=== PATIENT | female | born 2005 | race Hispanic/Latino ===

== ENCOUNTER 2024-08-19 22:30 | Emergency (ER) | payer MEDICAID ==
[~2024-08-19] VITALS: Ht 160 cm; Wt 86.2 kg
[2024-08-19] MEDS: FAMOTIDINE 20MG TAB PO ONE (23:46)
[2024-08-19] MEDS: ondanSETRON 4MG TABLET PO ONE (23:46)
[2024-08-19] MEDS: ketOROlac 30MG VIAL (30MG/ML) IM ONE (23:46)
[2024-08-19 23:51] LABS: BASOPHILS # (AUTO) 0.04 K/uL (0.00-0.20); BASOPHILS % (AUTO) 0.4 % (0.0-5.0); EOSINOPHILS # (AUTO) 0.05 K/uL (0.00-0.70); EOSINOPHILS % (AUTO) 0.5 % (0.0-8.0); HEMATOCRIT 34.8 % (36-48); IMMATURE GRANULOCYTE ABSOLUTE 0.02 K/uL (0-1); LYMPHOCYTES # (AUTO) 1.9 K/uL (1.0-4.8); LYMPHOCYTES % (AUTO) 18.2 % (21.0-51.0); MEAN CORPUSCULAR HEMOGLOBIN 25.8 pg (27.0-33.0); MEAN CORPUSCULAR HGB CONC 31.6 g/dL (32.0-36.0); MEAN CORPUSCULAR VOLUME 81.5 fL (80-100); MONOCYTES # (AUTO) 0.6 K/uL (0.1-1.0); MONOCYTES % (AUTO) 5.5 % (3.0-13.0); NEUTROPHILS # (AUTO) 7.9 K/uL (1.8-7.7); NEUTROPHILS % (AUTO) 75.2 % (40.0-77.0); PLATELET COUNT (AUTO) 319 K/uL (130-400); RED BLOOD CELL COUNT(AUTO) 4.27 MIL/uL (4.00-5.50); RED CELL DISTRIBUTION WIDTH 15.3 % (11.0-15.5); WHITE BLOOD COUNT (AUTO) 10.5 K/uL (4.8-10.8)
[2024-08-19] MEDS ORDERED: DOCU-116 PO (23:55)
--- NOTE | 2024-08-19 23:55 | ERN ---
ED Note History of Present Illness Stated Complaint: EPIGASTRIC PAIN RADIATES TO RUQ Chief Complaint: Abdominal Pain Time Seen by MD: 22:41 Dictation: This is the 19-year-old female who is 2 months comes in with an acute abdominal pain that started somewhere in the right upper quadrant area which eventually led to severe epigastric pain. She has been having these pains for the past few weeks and has severe burning sensation in the epigastric area. Today the pain was intense enough to vomit today no hematemesis or melena. No fever chills or rigors. She was at the movies when she started developing epigastric pain. She ate a meal around 2:00 p.m. and also some soup around 6:00 p.m.. She stated that her pain started before she ate her soup. She also reports severe chronic constipation. Temperature 97.9� pulse 78 respirations 16 blood pressure 102/68 pulse oximetry 99% on room air Allergies: Coded Allergies: codeine (Unverified Allergy, Intermediate, HIVES, 10/10/13) Home Meds Active Scripts Docusate Sodium (Colace) 100 Mg Capsule, 100 MG PO DAILYDINNER for constipation, #30 CAP 0 Refills Prov:KATIE STARR MD 08/19/24 Past Medical History Past Medical History: No Pertinent History Surgical History: Other Surgical History Other: BROKEN NOSE Family History: Negative Social History: Negative : 1 Para: 1 Aborts: 0 RN Note Reviewed/Agreed w/PFSH: Yes Review of System Dictation Constitutional: Negative for fever,chills, and weight loss Eyes: Negative for injury, pain,redness, and discharge ENT: Negative for injury,pain or swelling Cardiovascular: Negative for chest pain, palpitations, and edema Respiratory: Negative for shortness of breath, cough, and wheezing, Abdomen/GI: Positive for abdominal pain, nausea, vomiting,and constipation Back: Negative for injury and pain : Negative for injury, bleeding and discharge MS/Extremity: Negative for injury and deformity Skin: Negative for rash, and discoloration Neuro: Negative for headache, weakness, numbness, tingling, and seizure Psych: Negative for suicide ideation, homicidal ideation, and hallucinations Initial Vital Sign VS Vital Signs Date Time Temp Pulse Resp B/P (MAP) Pulse Ox O2 Delivery O2 Flow Rate FiO2 08/19/24 22:51 97.9 78 16 102/68 99 Room Air 0 Physical Exam Dictation General: awake, alert, NAD Head/Face: Normocephalic, atraumatic Eyes: PERRL, EOMI, vision at baseline ENT: oral cavity clear, TMs clear, no signs of infection Neck: Trachea midline, supple, no nuchal rigidity Cardiovascular: RRR, normal S1/S2, No MRGs, no JVD Respiratory: CTAB, no respiratory distress, No rales or wheezes Abdomen: Soft, tenderness in the epigastric area, non-distended, normal bowel sounds, no guarding or rebound. Skin: Warm, dry, normal turgor, no rash MS/Extremity: Pulses equal, no cyanosis, neurovascular intact, FROM Neuro: COAx4, GCS 15, strength 5/5, CN 2-12 intact, normal cerebellar exam, normal gait, Psych: Normal behavior, mood, and affect normal Extremities-trace edema without any palpable cords, Homans sign is negative Results (Laboratory/Radiology) Laboratory/Radiology Laboratory Tests Test 08/19/24 23:40 White Blood Count 10.5 K/uL (4.8-10.8) Red Blood Count 4.27 MIL/uL (4.00-5.50) Hemoglobin 11.0 g/dL (12.0-16.0) L Hematocrit 34.8 % (36-48) L Mean Corpuscular Volume 81.5 fL (80-100) Mean Corpuscular Hemoglobin 25.8 pg (27.0-33.0) L Mean Corpuscular Hemoglobin Concent 31.6 g/dL (32.0-36.0) L Red Cell Distribution Width 15.3 % (11.0-15.5) Platelet Count 319 K/uL (130-400) Mean Platelet Volume 10.1 fL (7.5-10.5) Immature Granulocyte % (Auto) 0.2 % (0-1) Neutrophils (%) (Auto) 75.2 % (40.0-77.0) Lymphocytes (%) (Auto) 18.2 % (21.0-51.0) L Monocytes (%) (Auto) 5.5 % (3.0-13.0) Eosinophils (%) (Auto) 0.5 % (0.0-8.0) Basophils (%) (Auto) 0.4 % (0.0-5.0) Neutrophils # (Auto) 7.9 K/uL (1.8-7.7) H Lymphocytes # (Auto) 1.9 K/uL (1.0-4.8) Monocytes # (Auto) 0.6 K/uL (0.1-1.0) Eosinophils # (Auto) 0.05 K/uL (0.00-0.70) Basophils # (Auto) 0.04 K/uL (0.00-0.20) Absolute Immature Granulocyte (auto 0.02 K/uL (0-1) Nucleated Red Blood Cells 0.0 % (0.0-0.19) Sodium Level 142 mmol/L (136-145) Potassium Level 3.7 mmol/L (3.5-5.1) Chloride Level 105 mmol/L (101-111) Carbon Dioxide Level 28 mmol/L (21-32) Blood Urea Nitrogen 16 mg/dL (7-18) Creatinine 0.6 mg/dL (0.5-1.0) Glomerular Filtration Rate Calc 132 mL/min (>90) Random Glucose 93 mg/dL (70-105) Total Calcium 9.0 mg/dL (8.5-10.1) Lipase 47 U/L (16-77) Labs Reviewed?: Yes ED Course ED Course Orders Procedure Category Date Status Time Ketorolac PHA 08/19/24 Complete Tromethamine 30mg/Ml 23:30 Ondansetron 4mg PHA 08/19/24 Complete Tablet (Zofran 4mg 23:30 Famotidine 20mg Tab PHA 08/19/24 Complete (Pepcid 20mg Tab) 23:30 Cbc With Differential LAB 08/19/24 Complete 23:11 Lipase LAB 08/19/24 Complete 23:11 Basic Metabolic Panel LAB 08/19/24 Complete 23:11 Current Medications Medications (Trade) Dose Ordered Sig/Severiano Route PRN Reason Start Time Stop Time Status Last Admin Dose Admin Famotidine (Pepcid 20mg Tab) 20 mg ONCE ONCE PO 08/19/24 23:30 08/19/24 23:31 DC 08/19/24 23:46 Ketorolac Tromethamine (toRADol) 30 mg ONCE ONCE IM 08/19/24 23:30 08/19/24 23:31 DC 08/19/24 23:46 Ondansetron HCl (zoFRAN 4MG TABLET) 4 mg ONCE ONCE PO 08/19/24 23:30 08/19/24 23:31 DC 08/19/24 23:46 Vital Signs Date Time Temp Pulse Resp B/P (MAP) Pulse Ox O2 Delivery O2 Flow Rate FiO2 08/19/24 22:51 97.9 78 16 102/68 99 Room Air 0 We will perform diagnostic labs, advanced imaging and administer medications according to the patient's complaint. Once the results are available, will review and personally interpreted the labs to rule out any acute life- threatening emergency the trach require immediate intervention and treatment. I will then re-evaluate the patient after treatment and diagnostic exams have return to determine whether the patient requires any further testing, can safely be discharged home or need further admission to hospital for additional treatment and evaluation. I had a long discussion with the patient and her mother about 2 major issues 1 is the epigastric right upper quadrant area pain this definitely raises a concern for gastritis as well as hiatal hernia. Biliary tree shoes another problem. The last concern is severe cons chronic constipation . I explained to the patient that she needs to be on 4-6 weeks of PPI for the severe burning and gastritis symptoms. I also recommended a stool softener daily and increasing fiber for the bowel regimen. Abdominal examination is benign and I explained to her that if her symptoms do not charles with the above regimen, we will also check ultrasound of the right upper quadrant. And perhaps also get a GI referral to evaluate for endoscopy She verbalized full understanding CBC BNP 7 lipase are all with a normal limits Medical Decision Making MDM MDM: Differential diagnosis: Gastritis, hiatal hernia, biliary colic, peptic ulcer disease, constipation Rationale: Tests considered and ordered secondary to shared decision making include: Previous outside records reviewed: Old ER visits. Risk of complication and/or morbidity or mortality of patient management: None Medications-Per medication reconciliation Need for hospitalization: Patient does not meet criteria for hospitalization. Need for emergency major/minor surgery: No There are no social concerns with this patient. Prescription drug management Prescriptions will include symptomatic care Patient's prior external medical records from other ER visits were reviewed by me as indicated. Prior testing and results from previous visits were reviewed. Prior tests were taken into account with medical decision making and resource utilization, independent historian/historians were used to obtain complete medical history. I independently interpreted the test that were performed, results were reviewed by me and considered findings on radiology if ordered. Medical management and examination interpretation discussions were had by me with other qualified healthcare professionals as indicated for the patient's care. Problem List Problem List: (1) Gastritis (2) Hiatal hernia (3) Gastroesophageal reflux (4) Chronic constipation DX & DISP Disposition: Discharge Departure Impression: Primary Impression: Gastritis Additional Impressions: Hiatal hernia, Gastroesophageal reflux, Chronic constipation Condition: Stable Scripts Docusate Sodium (Colace) 100 Mg Capsule 100 MG PO DAILYDINNER for constipation, #30 CAP 0 Refills Prov: KATIE STARR MD 08/19/24 Additional Instructions: Patient and the caregiver have been informed of all the diagnostic tests and the imaging conducted during the today's visit to the emergency room and has verbalized understanding of the results I have personally reviewed and interpreted all diagnostic exams performed here in the ER today as well as the vital signs documented by the nursing staff. The patient is now being discharged to home and should follow up with the primary care physician or the specialist as directed by the ER staff. Follow-up with primary care provider in 1 to 2 days. Take medications as directed here in the emergency room. Okay to continue home medications unless otherwise discussed during your visit in the emergency room today. Return to your nearest emergency room if symptoms worsen or if there is no improvement. Call 911 if you need immediate assistance. Take Tylenol or Motrin [id number] as needed and if no contraindications are present. Increase oral hydration. A wound culture or urine culture was ordered here in the emergency room department please follow-up with primary care provider and advise them to get repeat ports from our facility. If you had any Eusebio wrap/splints that were applied here, please do not remove them until you see your primary care or specialty. Referrals: SELF,REFERRAL (PCP) KATIE STARR MD August 19, 2024 23:55
[2024-08-20 00:03] LABS: CREATININE 0.6 mg/dL (0.5-1.0); POTASSIUM 3.7 mmol/L (3.5-5.1)
[2024-08-20 00:15] VITALS: BP 118/72; PULSE 76; RESP 18; TEMP 98.4; O2SAT 95
== END 2024-08-20 00:32 | disposition home or self-care (01) ==
LOC: EDH 22:30
DX: K29.70 Gastritis, unspecified, without bleeding (principal); K44.9 Diaphragmatic hernia without obstruction or gangrene; K59.09 Other constipation; Z88.5 Allergy status to narcotic agent
CPT/HCPCS: 99283; 80048; 83690; 85025; 36415; 96372; Q0162; J1885